=== PATIENT | female | born 1945 | race African-American/Black ===

== ENCOUNTER 2023-12-18 12:15 | Outpatient (CLI) | payer MEDICARE ==
[2023-12-18 17:46] LABS: BASOPHILS # (AUTO) 0.1 10^3/uL (0.0-0.1); BASOPHILS % (AUTO) 1.2 %; EOSINOPHILS # (AUTO) 0.3 10^3/uL (0.0-0.7); EOSINOPHILS % (AUTO) 6.1 %; HCT - HEMATOCRIT 36.3 % (37.0-47.0); HGB - HEMOGLOBIN 11.7 g/dL (12.0-16.0); LYMPHOCYTES # (AUTO) 1.3 10^3/uL (1.5-3.5); LYMPHOCYTES % (AUTO) 27.5 %; MEAN CORPUSCULAR HEMOGLOBIN 30.7 pg (27.0-31.0); MEAN CORPUSCULAR HGB CONC 32.2 g/dL (32.0-36.0); MEAN CORPUSCULAR VOLUME 95.3 fL (81.0-99.0); MEAN PLATELET VOLUME 11.9 fL (7.9-10.8); MONOCYTES # (AUTO) 0.4 10^3/uL (0.0-1.0); MONOCYTES % (AUTO) 8.4 %; NEUTROPHILS # (AUTO) 2.8 10^3/uL (1.5-6.6); NEUTROPHILS % (AUTO) 56.6 %; PLT - PLATELET COUNT 213 10^3/uL (130-450); RED BLOOD COUNT 3.81 10^6/uL (4.20-5.40); RED CELL DISTRIBUTION WIDTH 13.9 % (12.0-15.0); WHITE BLOOD COUNT 4.9 x10^3/uL (4.8-10.8)
[2023-12-18 18:17] LABS: ALBUMIN 3.8 g/dL (3.2-5.5); ALBUMIN/GLOBULIN RATIO 1.5 (1.0-2.2); ALKALINE PHOSPHATASE 52 IU/L (42-121); ALT ALANINE AMINOTRANSFERASE 15 IU/L (10-60); AST ASPARTATE AMINOTRANSFERASE 17 IU/L (10-42); BILIRUBIN,TOTAL 1.6 mg/dL (0.2-1.0); BUN - BLOOD UREA NITROGEN 13 mg/dL (6-20); CALCIUM 10.1 mg/dL (8.5-10.3); CARBON DIOXIDE - CO2 30 mmol/L (21-32); CHLORIDE 104 mmol/L (101-111); CHOL/HDL RATIO 3.1 (<4.4); CHOLESTEROL 164 mg/dL; CREATININE 0.5 mg/dL (0.6-1.3); GFR - MDRD 144 (>89); GLUCOSE 80 mg/dL (74-104); HDL CHOLESTEROL 53 mg/dL; LDL CHOLESTEROL,CALCULATED 91 mg/dL; LDL/HDL RATIO 1.7 (<4.4); POTASSIUM 4.1 mmol/L (3.5-4.5); SODIUM 138 mmol/L (135-145); TOTAL PROTEIN 6.3 g/dL (6.4-8.9); TRIGLYCERIDES 100 mg/dL (48-352); VLDL CHOLESTEROL 20 mg/dL
[2023-12-18 18:25] LABS: THYROID STIMULATING HORMONE 3.87 uIU/mL (0.34-5.60)
== END 2023-12-18 12:30 | disposition home or self-care (01) ==
LOC: LAB.N 12:15
PROVIDERS: ATTEND Nurse Practitioner
DX: E11.8 Type 2 diabetes mellitus with unspecified complications (principal); E78.5 Hyperlipidemia, unspecified; E07.9 Disorder of thyroid, unspecified
CPT/HCPCS: 36415; 80053; 80061; 83721; 84443; 85025

== ENCOUNTER 2024-01-17 17:49 | Emergency (ER) | payer MEDICARE ==
--- NOTE | 2024-01-17 17:58 | ED Physician Documentation ---
PD HPI MHE - Stated complaint Stated Complaint: ANTONI - Chief complaint Chief Complaint: MHE - History obtained from History obtained from: Patient, Police - History of Present Illness Primary symptom: Homicidal ideation Pain level max: 0 Pain level now: 0 - Additional information Additional information: Patient is a 78-year-old female who presents to the emergency department under an ANTONI by police for "homicidal ideation". The patient recently moved here from [place] and is living with her brother. She states that currently she is staying with a friend. She states that she told her brother that she was going to kill him if he did not leave her alone. She states that she did not actually want to kill him but may "smack him upside the head". Patient does have a history of dementia. Patient states she is not actively suicidal or homicidal. Review of Systems Constitutional: denies: Fever, Chills GI: denies: Vomiting, Diarrhea Skin: denies: Rash Musculoskeletal: denies: Neck pain, Back pain Neurologic: denies: Headache PD PAST MEDICAL HISTORY - Past Medical History Past Medical History: Yes Cardiovascular: Hypertension Neuro: Dementia - Present Medications Home Medications: Ambulatory Orders Medication Instructions Recorded Confirmed Atorvastatin Calcium 40 mg PO QPM 01/17/24 01/17/24 Celecoxib 100 mg PO BID 01/17/24 01/17/24 Cetirizine [ZyrTEC] 10 mg PO DAILY 01/17/24 01/17/24 Cholecalciferol (Vitamin D3) 50 mcg PO DAILY 01/17/24 01/17/24 [Vitamin D3] Donepezil [Aricept] 5 mg PO QPM 01/17/24 01/17/24 Memantine [Namenda] 5 mg PO DAILY 01/17/24 01/17/24 [place]-3/Dha/Epa/Fish Oil [Fish Oil 1 each PO DAILY 01/17/24 01/17/24 1,000 mg Softgel] Pantoprazole Sodium 40 mg PO DAILY 01/17/24 01/17/24 Potassium Citrate [Potassium] 99 mg PO DAILY 01/17/24 01/17/24 QUEtiapine [SEROquel] 25 mg PO QPM #30 tablet 01/17/24 carvediloL [Coreg] 12.5 mg PO BID 01/17/24 01/17/24 - Allergies Allergies/Adverse Reactions: Allergies Allergy/AdvReac Type Severity Reaction Status Date / Time No Known Drug Allergies Allergy Verified 01/17/24 18:06 PD ED PE NORMAL - Vitals Vital signs reviewed: Yes - General General: No acute distress, Other (Alert, oriented to person, place, not to time) - HEENT HEENT: Atraumatic, PERRL, EOMI, Ears normal, Moist mucous membranes - Neck Neck: Supple, no meningeal sign - Cardiac Cardiac: RRR, Strong equal pulses - Respiratory Respiratory: No respiratory distress, Clear bilaterally - Abdomen Abdomen: Soft, Non tender, Non distended - Back Back: No spinal TTP - Derm Derm: Warm and dry - Extremities Extremities: No deformity - Neuro Neuro: Other (Alert, oriented to person, place, not to time) - Psych Psych: Normal mood, Normal affect Results - Vitals Vitals: Vital Signs - 24 hr 01/17/24 01/17/24 17:58 21:45 Temperature 36.4 C L Heart Rate 88 88 Respiratory 18 20 Rate Blood Pressure 216/78 H 145/86 H O2 Saturation 100 97 Oxygen O2 Source Room air - Labs Labs: Laboratory Tests 01/17/24 01/17/24 01/17/24 18:10 18:10 18:52 WBC 3.2 L RBC 3.94 L Hgb 12.0 Hct 37.1 MCV 94.2 MCH 30.5 MCHC 32.3 RDW 13.4 Plt Count 213 MPV 11.4 H Neut # (Auto) 1.8 Lymph # (Auto) 0.9 L [place] # (Auto) 0.3 Eos # (Auto) 0.2 Baso # (Auto) 0.0 Absolute Nucleated RBC 0.00 Nucleated RBC % 0.0 Sodium 142 Potassium 3.8 Chloride 108 Carbon Dioxide 30 Anion Gap 4.0 L BUN 21 H Creatinine 0.6 Estimated GFR (MDRD) 117 Glucose 105 H Calcium 10.2 Magnesium 1.7 Total Bilirubin 1.4 H AST 16 ALT 17 Alkaline Phosphatase 53 Total Creatine Kinase 74 Total Protein 6.5 Albumin 4.0 Globulin 2.5 Albumin/Globulin Ratio 1.6 Lipase 19 Vitamin B12 434 Folate 15.2 TSH 3.68 Urine Color YELLOW Urine Clarity HAZY Urine pH 7.0 Ur Specific [place] 1.025 Urine Protein 100 H Urine Glucose (UA) NEGATIVE Urine Ketones NEGATIVE Urine Occult Blood TRACE-INTA Urine Nitrite NEGATIVE Urine Bilirubin NEGATIVE Urine Urobilinogen 1 (NORMAL) Ur Leukocyte Esterase NEGATIVE Urine RBC 0-5 Urine WBC 6-10 H Ur Squamous Epith Cells RARE Squamous Amorphous Sediment Few Urine Bacteria Few Ur Microscopic Review INDICATED Urine Culture Comments NOT INDICATED Salicylates < 1.5 Urine Opiates Screen POSITIVE H Ur Buprenorphine Scrn NEGATIVE Ur Oxycodone Screen NEGATIVE Urine Methadone Screen NEGATIVE Acetaminophen 0.2 Ur Barbiturates Screen NEGATIVE Ur Tricyclics Screen NEGATIVE Ur Phencyclidine Scrn NEGATIVE Ur Amphetamine Screen NEGATIVE U Methamphetamines Scrn NEGATIVE U Benzodiazepines Scrn NEGATIVE Urine Cocaine Screen NEGATIVE U Cannabinoids Screen NEGATIVE Ur Drug Screen Comment CUTOFF CONC BELOW: Ethyl Alcohol < 10.0 SARS-CoV-2 (PCR) 01/17/24 19:25 WBC RBC Hgb Hct MCV MCH MCHC RDW Plt Count MPV Neut # (Auto) Lymph # (Auto) [place] # (Auto) Eos # (Auto) Baso # (Auto) Absolute Nucleated RBC Nucleated RBC % Sodium Potassium Chloride Carbon Dioxide Anion Gap BUN Creatinine Estimated GFR (MDRD) Glucose Calcium Magnesium Total Bilirubin AST ALT Alkaline Phosphatase Total Creatine Kinase Total Protein Albumin Globulin Albumin/Globulin Ratio Lipase Vitamin B12 Folate TSH Urine Color Urine Clarity Urine pH Ur Specific [place] Urine Protein Urine Glucose (UA) Urine Ketones Urine Occult Blood Urine Nitrite Urine Bilirubin Urine Urobilinogen Ur Leukocyte Esterase Urine RBC Urine WBC Ur Squamous Epith Cells Amorphous Sediment Urine Bacteria Ur Microscopic Review Urine Culture Comments Salicylates Urine Opiates Screen Ur Buprenorphine Scrn Ur Oxycodone Screen Urine Methadone Screen Acetaminophen Ur Barbiturates Screen Ur Tricyclics Screen Ur Phencyclidine Scrn Ur Amphetamine Screen U Methamphetamines Scrn U Benzodiazepines Scrn Urine Cocaine Screen U Cannabinoids Screen Ur Drug Screen Comment Ethyl Alcohol SARS-CoV-2 (PCR) NOT DETECTED PD Medical Decision Making - ED course Complexity details: reviewed results, re-evaluated patient, considered differential, d/w patient, d/w family, d/w [facility] consultant ED course: Patient does have a history of dementia, but is medically clear for psychiatric care. As the patient was placed on an ANTONI hold by police, the DCR will be dispatched for further evaluation. DCR, Kamryn, spoke with the family. They do not want her detained. She is calm and cooperative here. They did request some medication to help her sleep at night and they do report that she has sundowning. We will start her on a low- dose Seroquel until she can see her doctor next week. I spoke with the patient's brother at bedside. Patient is calm and cooperative here. Patient does not have any urinary symptoms, therefore we will not treat her UA. Family counseled regarding signs and symptoms for which I believe and urgent re- evaluation would be necessary. Family with good understanding of and agreement to plan and is comfortable going home at this time This document was made in part using voice recognition software. While efforts are made to proofread this document, sound alike and grammatical errors may occur. Departure - Departure Disposition: 01 Home, Self Care Clinical Impression: Dementia Qualifiers: Dementia type: unspecified type Dementia severity: unspecified severity Dementia behavioral or psychological symptom: unspecified whether behavioral, psychotic, or mood disturbance or anxiety Qualified Code(s): F03.90 - Unspecified dementia, unspecified severity, without behavioral disturbance, psychotic disturbance, mood disturbance, and anxiety Condition: Good Instructions: ED Dementia Caregiver Support Follow-Up: your,doctor in 1 week [Other] Prescriptions: QUEtiapine [SEROquel] 25 mg PO QPM #30 tablet Comments: Please follow-up with your doctor for further care. Please return if you worsen. Your prescription was sent to [facility] in [place]. Forms: PCP List Discharge Date/Time: 01/17/24 21:46
[2024-01-17 18:16] LABS: BASOPHILS % (AUTO) 1.2 %; EOSINOPHILS # (AUTO) 0.2 10^3/uL (0.0-0.7); EOSINOPHILS % (AUTO) 5.2 %; HCT - HEMATOCRIT 37.1 % (37.0-47.0); LYMPHOCYTES # (AUTO) 0.9 10^3/uL (1.5-3.5); LYMPHOCYTES % (AUTO) 26.2 %; MEAN CORPUSCULAR HEMOGLOBIN 30.5 pg (27.0-31.0); MEAN CORPUSCULAR HGB CONC 32.3 g/dL (32.0-36.0); MEAN CORPUSCULAR VOLUME 94.2 fL (81.0-99.0); MEAN PLATELET VOLUME 11.4 fL (7.9-10.8); MONOCYTES # (AUTO) 0.3 10^3/uL (0.0-1.0); MONOCYTES % (AUTO) 10.5 %; NEUTROPHILS # (AUTO) 1.8 10^3/uL (1.5-6.6); NEUTROPHILS % (AUTO) 56.6 %; PLT - PLATELET COUNT 213 10^3/uL (130-450); RED BLOOD COUNT 3.94 10^6/uL (4.20-5.40); RED CELL DISTRIBUTION WIDTH 13.4 % (12.0-15.0); WHITE BLOOD COUNT 3.2 x10^3/uL (4.8-10.8)
[2024-01-17 18:41] LABS: MAGNESIUM 1.7 mg/dL (1.7-2.3)
[2024-01-17 18:44] LABS: THYROID STIMULATING HORMONE 3.68 uIU/mL (0.34-5.60)
[2024-01-17 18:47] LABS: ACETAMINOPHEN 0.2 ug/mL; ALBUMIN/GLOBULIN RATIO 1.6 (1.0-2.2); ALKALINE PHOSPHATASE 53 IU/L (42-121); ALT ALANINE AMINOTRANSFERASE 17 IU/L (10-60); AST ASPARTATE AMINOTRANSFERASE 16 IU/L (10-42); BILIRUBIN,TOTAL 1.4 mg/dL (0.2-1.0); BUN - BLOOD UREA NITROGEN 21 mg/dL (6-20); CALCIUM 10.2 mg/dL (8.5-10.3); CARBON DIOXIDE - CO2 30 mmol/L (21-32); CHLORIDE 108 mmol/L (101-111); CK- CREATINE KINASE 74 IU/L (30-223); CREATININE 0.6 mg/dL (0.6-1.3); ETOH - ETHANOL < 10.0 mg/dL; GFR - MDRD 117 (>89); GLUCOSE 105 mg/dL (74-104); LIPASE 19 U/L (11-82); POTASSIUM 3.8 mmol/L (3.5-4.5); SODIUM 142 mmol/L (135-145); TOTAL PROTEIN 6.5 g/dL (6.4-8.9)
[2024-01-17 18:53] LABS: SALICYLATE < 1.5 mg/dL
[2024-01-17 19:02] LABS: BILIRUBIN,URINE NEGATIVE (NEGATIVE); GLUCOSE, URINE (UA) NEGATIVE (NEGATIVE); KETONES,URINE (UA) NEGATIVE (NEGATIVE); LEUKOCYTE ESTERASE, URINE NEGATIVE (NEGATIVE); NITRITE,URINE NEGATIVE (NEGATIVE); OCCULT BLOOD,URINE TRACE-INTA (NEGATIVE); PROTEIN,URINE 100 mg/dL (NEGATIVE); UROBILINOGEN,URINE 1 (NORMAL) E.U./dL (NORMAL)
[2024-01-17 19:04] LABS: CLARITY,URINE HAZY (CLEAR)
[2024-01-17 19:11] LABS: AMORPHOUS SEDIMENT,UR Few /LPF; BACTERIA,URINE Few /HPF (None Seen); RBC,URINE 0-5 /HPF (0-5); SQUAMOUS EPITHELIAL CELL,UR RARE Squamous (<= Few)
[2024-01-17 19:13] LABS: AMPHETAMINE SCREEN,URINE NEGATIVE (NEGATIVE); BARBITURATE SCREEN,UR NEGATIVE (NEGATIVE); BENZODIAZEPINES SCREEN, URINE NEGATIVE (NEGATIVE); BUPRENORPHINE SCREEN, URINE NEGATIVE (NEGATIVE); COCAINE SCREEN URINE NEGATIVE (NEGATIVE); METHADONE SCREEN, URINE NEGATIVE (NEGATIVE); METHAMPHETAMINES SCREEN, URINE NEGATIVE (NEGATIVE); OPIATE SCREEN, URINE POSITIVE (NEGATIVE); OXYCODONE SCREEN, URINE NEGATIVE (NEGATIVE); THC CANNABINOID SCREEN, URINE NEGATIVE (NEGATIVE); TRICYCLIC ANTIDEPRESSANT,URINE NEGATIVE (NEGATIVE)
[2024-01-17 21:50] VITALS: BP 145/86; O2SAT 97
== END 2024-01-17 21:46 | disposition home or self-care (01) ==
LOC: EDUNIT# → EDBD → ED 17:49 → EDBD 17:49 → ED 21:46
DX: F03.90 Unspecified dementia, unspecified severity, without behavioral disturbance, psychotic disturbance, mood disturbance, and anxiety (principal)
CPT/HCPCS: 36415; 80053; 80143; 80306; 81001; 82550; 82607; 82746; 83690; 83735; 84443; 85025; 87635; 99284; G0480; 80179; 81003; 82077; 87086

== ENCOUNTER 2024-01-18 14:14 | Outpatient (CLI) | payer MEDICARE ==
--- NOTE | 2024-01-18 16:39 | CT Report ---
PROCEDURE: Head WO INDICATIONS: HEADACHE TECHNIQUE: Noncontrast 4.5 mm thick angled axial sections acquired from the foramen magnum to the vertex. For r adiation dose reduction, the following was used: automated exposure control, adjustment of mA and/or kV according to patient size. COMPARISON: None. FINDINGS: Image quality: Excellent. CSF spaces: Basal cisterns are patent. No extra-axial fluid collections. Ventricles are symmetric in size and shape. Brain: No midline shift. No intracranial masses or hemorrhage. Hypodensities in the subcortical and periventricular white matter are most commonly seen in setting of chronic microvascular ischemic aron nges. Age-related cerebral and cerebellar volume loss is seen. Intracranial vascular calcifications a re noted in the internal carotid arteries. Skull and face: Calvarium and visualized facial bones are intact, without suspicious lesions. Sinuses: Visualized sinuses and mastoids are clear. IMPRESSION: 1.No acute intracranial pathology. No source for headache identified. 2.Mild chronic microvascular ischemic changes and generalized parenchymal volume loss. Reviewed by: Shubham Adam MD on 01/18/2024 4:38 PM PDT Approved by: Shubham Adam MD on 01/18/2024 4:38 PM PDT Station ID: [id number]
== END 2024-01-18 14:15 | disposition home or self-care (01) ==
LOC: EDBD 14:14 → DI 14:14
PROVIDERS: ATTEND Nurse Practitioner Family
DX: I67.82 Cerebral ischemia (principal); G44.029 Chronic cluster headache, not intractable

== ENCOUNTER 2024-03-12 13:01 | Outpatient (CLI) | payer MEDICARE | END 2024-03-12 23:59 | disposition EMS.NT | LOC: EMS 13:01 | DX: F03.911 Unspecified dementia, unspecified severity, with agitation (principal) ==

== ENCOUNTER 2024-04-25 21:26 | Emergency (ER) | payer MEDICARE ==
[2024-04-25 21:39] VITALS: O2SAT 98
--- NOTE | 2024-04-25 22:12 | XRAY Report ---
PROCEDURE: Chest 1V INDICATIONS: AMS TECHNIQUE: One view of the chest was acquired. COMPARISON: None. FINDINGS: Surgical changes and devices: None. Lungs and pleura: No pleural effusions or pneumothorax. Lungs are clear. Mediastinum: Mediastinal contours appear normal. Heart size is normal. Bones and chest wall: No suspicious bony lesions. Overlying soft tissues appear unremarkable. IMPRESSION: No acute cardiopulmonary process. Reviewed by: Pawan Sparks MD on 04/25/2024 10:11 PM PDT Approved by: Pawan Sparks MD on 04/25/2024 10:11 PM PDT Station ID: [id number]
[2024-04-25 22:18] LABS: BASOPHILS # (AUTO) 0.1 10^3/uL (0.0-0.1); BASOPHILS % (AUTO) 1.2 %; EOSINOPHILS # (AUTO) 0.3 10^3/uL (0.0-0.7); EOSINOPHILS % (AUTO) 7.4 %; HCT - HEMATOCRIT 40.2 % (37.0-47.0); HGB - HEMOGLOBIN 13.2 g/dL (12.0-16.0); LYMPHOCYTES # (AUTO) 1.7 10^3/uL (1.5-3.5); LYMPHOCYTES % (AUTO) 39.8 %; MEAN CORPUSCULAR HEMOGLOBIN 30.3 pg (27.0-31.0); MEAN CORPUSCULAR HGB CONC 32.8 g/dL (32.0-36.0); MEAN CORPUSCULAR VOLUME 92.2 fL (81.0-99.0); MEAN PLATELET VOLUME 11.7 fL (7.9-10.8); MONOCYTES # (AUTO) 0.5 10^3/uL (0.0-1.0); MONOCYTES % (AUTO) 12.2 %; NEUTROPHILS # (AUTO) 1.6 10^3/uL (1.5-6.6); NEUTROPHILS % (AUTO) 39.4 %; PLT - PLATELET COUNT 203 10^3/uL (130-450); RED BLOOD COUNT 4.36 10^6/uL (4.20-5.40); RED CELL DISTRIBUTION WIDTH 12.1 % (12.0-15.0); WHITE BLOOD COUNT 4.2 x10^3/uL (4.8-10.8)
[2024-04-25 22:34] LABS: ALBUMIN/GLOBULIN RATIO 1.2 (1.0-2.2); BILIRUBIN,TOTAL 1.5 mg/dL (0.2-1.0); CALCIUM 11.1 mg/dL (8.5-10.3); CREATININE 0.9 mg/dL (0.6-1.3); POTASSIUM 3.8 mmol/L (3.5-4.5); TOTAL PROTEIN 7.3 g/dL (6.4-8.9)
[2024-04-25 23:39] LABS: BILIRUBIN,URINE NEGATIVE (NEGATIVE); GLUCOSE, URINE (UA) NEGATIVE (NEGATIVE); KETONES,URINE (UA) NEGATIVE (NEGATIVE); LEUKOCYTE ESTERASE, URINE NEGATIVE (NEGATIVE); NITRITE,URINE NEGATIVE (NEGATIVE); OCCULT BLOOD,URINE NEGATIVE (NEGATIVE); PROTEIN,URINE NEGATIVE (NEGATIVE); UROBILINOGEN,URINE 0.2 (NORMAL) E.U./dL (NORMAL)
[2024-04-25 23:50] LABS: CLARITY,URINE CLEAR (CLEAR)
--- NOTE | 2024-04-25 23:53 | ED Physician Documentation ---
History of Present Illness - Stated complaint Stated Complaint: CONFUSION - Chief complaint Chief Complaint: Neuro - History obtained from History obtained from: Family - Additonal information Additional information: 79-year-old female with history of Alzheimer's dementia presents with increasing behavioral disturbance over the last several days. History is obtained from brother at bedside, patient is denying complaints at this time. Brother states that patient has been increasingly irritable and trying to walk off. Today she tried to walk out of orth[facility] and her brother had to stop her. Brother states that they are working with her PCP on patient's agitation, but it is a struggle as he states that the patient is very stubborn and resistant to help Review of Systems Unable to obtain: Dementia PD PAST MEDICAL HISTORY - Past Medical History Cardiovascular: Hypertension Neuro: Alzhiemer's, Dementia GI: GERD - Past Surgical History Past Surgical History: No - Present Medications Home Medications: Ambulatory Orders Medication Instructions Recorded Confirmed Atorvastatin Calcium 40 mg PO QPM 01/17/24 01/17/24 Celecoxib 100 mg PO BID 01/17/24 01/17/24 Cetirizine [ZyrTEC] 10 mg PO DAILY 01/17/24 01/17/24 Cholecalciferol (Vitamin D3) 50 mcg PO DAILY 01/17/24 01/17/24 [Vitamin D3] Donepezil [Aricept] 5 mg PO QPM 01/17/24 01/17/24 Memantine [Namenda] 5 mg PO DAILY 01/17/24 01/17/24 [place]-3/Dha/Epa/Fish Oil [Fish Oil 1 each PO DAILY 01/17/24 01/17/24 1,000 mg Softgel] Pantoprazole Sodium 40 mg PO DAILY 01/17/24 01/17/24 Potassium Citrate [Potassium] 99 mg PO DAILY 01/17/24 01/17/24 QUEtiapine [SEROquel] 25 mg PO QPM #30 tablet 01/17/24 carvediloL [Coreg] 12.5 mg PO BID 01/17/24 01/17/24 - Allergies Allergies/Adverse Reactions: Allergies Allergy/AdvReac Type Severity Reaction Status Date / Time No Known Drug Allergies Allergy Verified 04/25/24 21:39 - Social History Does the pt smoke?: No Smoking Status: Never smoker Does the pt drink ETOH?: No Does the pt have substance abuse?: No PD ED PE NORMAL - General General: No acute distress, Well developed/nourished - Cardiac Cardiac: RRR, Strong equal pulses - Respiratory Respiratory: No respiratory distress, Clear bilaterally - Abdomen Abdomen: Soft, Non tender, Non distended - Derm Derm: Normal color, Warm and dry, No rash - Extremities Extremities: No deformity, No tenderness to palpate, Normal ROM s pain, No edema - 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, No motor deficit, No sensory deficit, Normal speech, Other (oriented to self only) Results - Vitals Vitals: Oxygen O2 Source Room air - Labs Labs: Laboratory Tests 04/25/24 04/25/24 04/25/24 22:07 22:07 23:30 WBC 4.2 L RBC 4.36 Hgb 13.2 Hct 40.2 MCV 92.2 MCH 30.3 MCHC 32.8 RDW 12.1 Plt Count 203 MPV 11.7 H Neut # (Auto) 1.6 Lymph # (Auto) 1.7 [place] # (Auto) 0.5 Eos # (Auto) 0.3 Baso # (Auto) 0.1 Absolute Nucleated RBC 0.00 Nucleated RBC % 0.0 Sodium 141 Potassium 3.8 Chloride 106 Carbon Dioxide 28 Anion Gap 7.0 BUN 49 H Creatinine 0.9 Estimated GFR (MDRD) 73 L Glucose 99 Calcium 11.1 H Total Bilirubin 1.5 H AST 20 ALT 11 Alkaline Phosphatase 50 Total Protein 7.3 Albumin 4.0 Globulin 3.3 Albumin/Globulin Ratio 1.2 Lipase 18 Urine Color YELLOW Urine Clarity CLEAR Urine pH 6.0 Ur Specific [place] 1.025 Urine Protein NEGATIVE Urine Glucose (UA) NEGATIVE Urine Ketones NEGATIVE Urine Occult Blood NEGATIVE Urine Nitrite NEGATIVE Urine Bilirubin NEGATIVE Urine Urobilinogen 0.2 (NORMAL) Ur Leukocyte Esterase NEGATIVE Ur Microscopic Review NOT INDICATED Urine Culture Comments NOT INDICATED PD Medical Decision Making - ED course Complexity details: reviewed old records, reviewed results, re-evaluated patient, considered differential, d/w patient ED course: Patient with known dementia presenting for increasing agitation and irritability with family. On my exam patient is calm, cooperative, very pleasantly demented, denying any complaints. Laboratory work ordered for assessment. Laboratory work shows no significant changes from patient's baseline. No evidence of infection, anemia, or electrolyte derangement. Urinalysis negative for signs of infection. Patient has remained calm and cooperative in the exam room, but is expressing that she would like to leave to go home. Lab and imaging findings discussed with patient's brother at bedside, he states that he will continue to follow-up with patient's primary doctor on ways that family can manage his sister, with ongoing discussion of possible placement to memory care facility Departure - Departure Disposition: 01 Home, Self Care Clinical Impression: Confusion, Dementia Condition: Stable Instructions: ED Dementia Caregiver Support Comments: Reach out to your primary care doctor if these episodes continue or escalate. Forms: PCP List Discharge Date/Time: 04/25/24 23:57
[2024-04-26 00:07] VITALS: BP 166/85
== END 2024-04-25 23:57 | disposition home or self-care (01) ==
LOC: ED 21:26
DX: G30.9 Alzheimer's disease, unspecified (principal); F02.811 Dementia in other diseases classified elsewhere, unspecified severity, with agitation; R94.31 Abnormal electrocardiogram [ECG] [EKG]
CPT/HCPCS: 36415; 80053; 81001; 81003; 83690; 85025; 87086; 93005; 99283; 99284